=== PATIENT | female | born 1965 | race Caucasian/White ===

== ENCOUNTER → 2019-03-29 | Day surgery (SDC) | payer OTHER ==
--- NOTE | 2019-03-30 17:42 | PATH ---
Surgical Pathology Report Patient Name: EDWIN VORA [facility]. Rec. #: [id number] /Age/Gender: 1965 (Age: 53) / F Account: [id number] Location: [facility] Taken: 03/29/2019 Received: 03/29/2019 Reported: 03/30/2019 Physicians: Umair Antoine Specimen(s) Received A: RIGHT BREAST SPECIMEN - WITH CALCIFICATIONS B: RIGHT BREAST SPECIMEN - WITHOUT CALCIFICATIONS Clinical History Nonpalpable lesion Mammographic findings: Microcalcification, suspicious Final Diagnosis A. RIGHT BREAST SPECIMEN WITH CALCIFICATIONS, STEREOTACTIC BIOPSY: BENIGN BREAST TISSUE WITH PROLIFERATIVE FIBROCYSTIC CHANGES INCLUDING USUAL DUCTAL HYPERPLASIA (UDH), SCLEROSING ADENOSIS, COLUMNAR CELL CHANGE, DILATED DUCTS, STROMAL FIBROSIS, AND ASSOCIATED CALCIFICATIONS. B. RIGHT BREAST SPECIMEN WITHOUT CALCIFICATIONS, STEREOTACTIC BIOPSY: BENIGN BREAST TISSUE WITH PROLIFERATIVE FIBROCYSTIC CHANGES INCLUDING USUAL DUCTAL HYPERPLASIA (UDH), SCLEROSING ADENOSIS, COLUMNAR CELL CHANGE, DILATED DUCTS, STROMAL FIBROSIS, AND ASSOCIATED CALCIFICATIONS. Electronically Signed Julian Robertson M.D. Gross Description A. Received in formalin labeled "right breast with calcifications," is a 3.0 x 3.0 x 0.3 cm aggregate of carpenter-yellow, irregular to cylindrical portions of fibroadipose tissue. The formalin is filtered and the specimen is entirely submitted in 2 cassettes. B. Received in formalin labeled "right breast without calcifications," is a 3.4 x 3.2 x 0.3 cm aggregate of multiple carpenter-yellow, irregular to cylindrical portions of fibroadipose tissue. The formalin is filtered and the specimen is entirely submitted in 2 cassettes. Time to formalin fixation: 5 minutes Total formalin fixation time: Approximately 6 hours. /03/29/2019 saudi03/29/2019
== END | disposition home or self-care (01) ==
LOC: FMAMMOTONE 09:41
PROVIDERS: ATTEND Specialist
PROC: 0HBT3ZX Excision of Right Breast, Percutaneous Approach, Diagnostic (ICD-10-PCS; principal; 2019-03-29)
DX: N60.21 Fibroadenosis of right breast (principal); N60.31 Fibrosclerosis of right breast; N60.81 Other benign mammary dysplasias of right breast; N64.89 Other specified disorders of breast; R92.1 Mammographic calcification found on diagnostic imaging of breast
CPT/HCPCS: 19081